=== PATIENT | female | born 1960 | race Caucasian/White ===

== ENCOUNTER → 2020-07-03 | Outpatient (CLI) | payer OTHER ==
--- NOTE | 2020-07-03 14:49 | Diagnostic Imaging Report ---
EXAMINATION: Magnetic resonance imaging of the right knee without intravenous contrast DATE: July 03, 2020. COMPARISON: None. INDICATION: 60-year-old female, right knee pain. Twisting injury 2 weeks ago. TECHNIQUE: Multiplanar, multisequence non contrast enhanced MR imaging was accomplished. FINDINGS: MENISCI: There is an oblique tear involving the anterior horn/body junction and body of the medial meniscus. There is no medial meniscal extrusion. The lateral meniscus is intact. LIGAMENTS AND TENDONS: The anterior and posterior cruciate ligaments are intact. The medial collateral ligament is intact. The iliotibial band, mid third lateral capsular ligament, fibular collateral ligament, biceps femoris tendon and conjoined tendon are intact. The quadriceps tendon and patella ligament are intact. JOINT: The articular cartilage surfaces are intact. There is no knee joint effusion, prominent synovitis, or intra-articular body. BONE: There is unremarkable bone marrow signal. Specifically, negative for fracture, osteomyelitis, osteonecrosis, or marrow replacing process. BURSAE AND SOFT TISSUES: There is a small slitlike Samuel's cyst. There is nonspecific prepatellar subcutaneous edema. There is subtle low level edema in the lateral head of gastrocnemius muscle. IMPRESSION: 1. Oblique tear involving the anterior horn and body of the medial meniscus. 2. Intact lateral meniscus. 3. Intact anterior and posterior cruciate ligaments. Additional ligaments and tendons are intact. 4. No acute fracture or bone contusion. 5. Intact articular cartilage. No knee joint effusion. 6. Small slitlike Samuel's cyst. 7. Edema in the lateral head of gastrocnemius muscle which may reflect a low-grade muscle strain. Dictated by: Dictated on workstation # [id number]
== END ==
LOC: RAD 13:25
PROVIDERS: ATTEND Nurse Practitioner Family
DX: Z04.2 Encounter for examination and observation following work accident (principal); S83.411A Sprain of medial collateral ligament of right knee, initial encounter; I10 Essential (primary) hypertension; S83.241A Other tear of medial meniscus, current injury, right knee, initial encounter; M71.21 Synovial cyst of popliteal space [Baker], right knee
CPT/HCPCS: 73721

== ENCOUNTER 2021-07-27 15:40 | Observation (INO) | payer OTHER ==
[2021-07-27] VITALS (9 sets, daily range): BP systolic 126–164; BP diastolic 85–116
[~2021-07-27] VITALS: Ht 167.7 cm; Wt 80.2 kg
[2021-07-27] MEDS ORDERED: ASPIRIN 81 MG CHEW (CHILDREN'S ASA) PO ONE (16:00)
[2021-07-27] MEDS ORDERED: NITROGLYCERIN 0.4 MG SL TABS BTL 25'S SL PRN ×2 (16:00→21:30)
--- NOTE | 2021-07-27 16:14 | ED Chest Pain ---
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 CHEST PAIN COMES AND GOES, AND RATES IT 6/10 AT WORST, AND RATES PAIN 2-3/10- NOW NO SHORTNESS OF BREATH--STATES SHE ONLY FEELS SHORT OF BREATH WHEN SHE HAS TO WEAR A MASK AT WORK. DOES FEEL SHORT OF BREATH WHEN SHE IS NOT WEARING A MASK + SWEATS WHEN HER HEART IS BEATING FAST AND WITH CHEST PAIN NO DIZZINESS OR SYNCOPE NO CHANGE IN NORMAL FEET/ANKLE AND HAND SWELLING AT THE END OF A WORK DAY SYMPTOMS ARE NO DIFFERENT TODAY IN ANY WAY HAS NOT SOUGHT CARE UNTIL TODAY PT HAS HTN, AND TAKES: -LISINOPRIL 10 MG DAILY -ATENOLOL 100 MG AT BEDTIME -DOXAZOSIN DAILY STATES SHE DOES NOT HAVE A DR--JUST GOES TO A WALK IN CLINIC IN [place] FOR MEDICATION REFILLS HAS NEVER HAD ANY CARDIAC TESTS PT DOES NOT SMOKE, DRINK OR USE DRUGS PT HAS HAD COVID-19 VACCINE X 2, NO BOOSTER PT HAS HAD FLU VACCINE THIS SEASON Allergies and Home Medications Allergies Coded Allergies: Penicillins (Verified Allergy, Severe, ANAPHYLAXIS, 07/27/21) Patient Home Medication List Home Medication List Reviewed: Yes Review of Systems Review of Systems Constitutional: see HPI, diaphoresis; No dizziness, No malaise, No weakness EENTM: No Symptoms Reported Respiratory: See HPI, Shortness of Air Cardiovascular: See HPI, Chest Pain; Denies Edema; Irregular Heart Rate; Denies Lightheadedness; Palpitations; Denies Syncope Gastrointestinal: No Symptoms Reported; Denies Abdominal Pain, Denies Nausea, Denies Vomiting Genitourinary: No Symptoms Reported Musculoskeletal: see HPI Skin: no symptoms reported Psychiatric/Neurological: No Symptoms Reported Endocrine: No Symptoms Reported Hematologic/Lymphatic: No Symptoms Reported Past Dpnilvl-Xptnkr-Oapycm Hx Patient Social History Tobacco Use?: No Substance use?: No Alcohol Use?: No Past Medical History Surgeries: Yes Adenoidectomy, Hysterectomy, Oophorectomy, Orthopedic, Tonsillectomy Respiratory: No Cardiac: Yes Hypertension 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 oz. kg; BMI Method: General Appearance: No Apparent Distress, WD/WN, Other (DOES NOT APPEAR TO BE IN ANY DISCOMFORT OR DISTRESS) Neck: Full Range of Motion, Normal Inspection, Non Tender, Supple; No Carotid Bruit, No JVD Respiratory: Normal Breath Sounds, No Accessory Muscle Use, No Respiratory Distress Cardiovascular: No Edema, No JVD, No Murmur, Normal Peripheral Pulses, Tachycardia Gastrointestinal: Non Tender, Soft Extremity: Normal Capillary Refill, Normal Inspection, Normal Range of Motion, Non Tender, No Calf Tenderness, No Pedal Edema Neurologic/Psychiatric: Alert, Oriented x3, No Motor/Sensory Deficits, Normal 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, 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 Norm as Tested Skin: Normal Color, Warm/Dry Progress/Results/Core Measures Results/Orders Lab Results Laboratory Tests Test 07/27/21 16:13 07/27/21 16:30 Range/Units White Blood Count 6.0 4.3-11.0 10^3/uL Red Blood Count 4.51 3.80-5.11 10^6/uL Hemoglobin 13.7 11.5-16.0 g/dL Hematocrit 40 35-52 % Mean Corpuscular Volume 89 80-99 fL Mean Corpuscular Hemoglobin 30 25-34 pg Mean Corpuscular Hemoglobin Concent 34 32-36 g/dL Red Cell Distribution Width 12.1 10.0-14.5 % Platelet Count 279 130-400 10^3/uL Mean Platelet Volume 9.5 9.0-12.2 fL Immature Granulocyte % (Auto) 0 % Neutrophils (%) (Auto) 46 42-75 % Lymphocytes (%) (Auto) 42 12-44 % Monocytes (%) (Auto) 9 0-12 % Eosinophils (%) (Auto) 2 0-10 % Basophils (%) (Auto) 1 0-10 % Neutrophils # (Auto) 2.8 1.8-7.8 10^3/uL Lymphocytes # (Auto) 2.5 1.0-4.0 10^3/uL Monocytes # (Auto) 0.5 0.0-1.0 10^3/uL Eosinophils # (Auto) 0.1 0.0-0.3 10^3/uL Basophils # (Auto) 0.0 0.0-0.1 10^3/uL Immature Granulocyte # (Auto) 0.0 0.0-0.1 10^3/uL Prothrombin Time 12.8 12.2-14.7 SEC INR Comment 0.9 0.8-1.4 Activated Partial Thromboplast Time 30 24-35 SEC D-Dimer 0.45 0.00-0.49 UG/ML Sodium Level 143 135-145 MMOL/L Potassium Level 4.2 3.6-5.0 MMOL/L Chloride Level 107 98-107 MMOL/L Carbon Dioxide Level 24 21-32 MMOL/L Anion Gap 12 5-14 MMOL/L Blood Urea Nitrogen 12 7-18 MG/DL Creatinine 0.75 0.60-1.30 MG/DL Estimat Glomerular Filtration Rate 91 BUN/Creatinine Ratio 16 Glucose Level 97 70-105 MG/DL Calcium Level 9.5 8.5-10.1 MG/DL Corrected Calcium 9.4 8.5-10.1 MG/DL Magnesium Level 2.3 1.6-2.4 MG/DL Total Bilirubin 0.4 0.1-1.0 MG/DL Aspartate Amino Transf (AST/SGOT) 19 5-34 U/L Alanine Aminotransferase (ALT/SGPT) 18 0-55 U/L Alkaline Phosphatase 93 40-136 U/L Total Creatine Kinase 53 29-168 U/L Creatine Kinase MB 1.9 <6.6 NG/ML Myoglobin 37.4 10.0-92.0 NG/ML Troponin I < 0.028 <0.028 NG/ML B-Type Natriuretic Peptide 15.9 <100.0 PG/ML Total Protein 7.3 6.4-8.2 GM/DL Albumin 4.1 3.2-4.5 GM/DL TSH [place] Testing 0.63 0.35-4.94 UIU/ML Urine Color YELLOW Urine Clarity CLEAR Urine pH 6.0 5-9 Urine Specific [place] >=1.030 1.016-1.022 Urine Protein NEGATIVE NEGATIVE Urine Glucose (UA) NEGATIVE NEGATIVE Urine Ketones NEGATIVE NEGATIVE Urine Nitrite NEGATIVE NEGATIVE Urine Bilirubin NEGATIVE NEGATIVE Urine Urobilinogen 0.2 < = 1.0 MG/DL Urine Leukocyte Esterase NEGATIVE NEGATIVE Urine RBC (Auto) NEGATIVE NEGATIVE Urine RBC NONE /HPF Urine WBC NONE /HPF Urine Squamous Epithelial Cells 0-2 /HPF Urine Crystals NONE /LPF Urine Bacteria NEGATIVE /HPF Urine Casts NONE /LPF Urine Mucus NEGATIVE /LPF Urine Culture Indicated NO My Orders Orders - PABLITO PUENTES DO Ed Iv/Invasive Line Start (07/27/21 15:53) Ekg Tracing (07/27/21 15:53) O2 (07/27/21 15:53) Monitor-Rhythm Ecg Trace Only (07/27/21 15:53) Bnp [place] (07/27/21 15:53) Cbc With Automated Diff (07/27/21 15:53) Comprehensive Metabolic Panel (07/27/21 15:53) Magnesium (07/27/21 15:53) Protime With Inr (07/27/21 15:53) Partial Thromboplastin Time (07/27/21 15:53) Thyroid Analyzer (07/27/21 15:53) Ua Culture If Indicated (07/27/21 15:53) Troponin I [place] (07/27/21 15:53) Chest 1 View, Ap/Pa Only (07/27/21 15:53) Myoglobin Serum (07/27/21 16:00) Creatine Kinase (07/27/21 16:00) Creatine Kinase Mb (07/27/21 16:00) Fibrin Degradation Products (07/27/21 16:00) Nitroglycerin 0.4 Mg Btl 25's (Nitrostat (07/27/21 16:00) Aspirin Chewable Tablet (Baby Aspirin Ch (07/27/21 16:00) Vital Signs/I&O 07/27/21 15:50 Temp 36.5 Pulse 115 Resp 17 B/P (MAP) 140/102 (115) O2 Delivery Room Air Progress Progress Note : Progress Note GIVEN ASPIRIN NTG HELD, PT NOW STATES HER PAIN IS LESS THAN A 1, BUT NOT COMPLETELY GONE. NO DETERIORATION IN PT'S CONDITION HR REMAINS 110'S-120 BP STABLE Initial ECG Impression Date: July 27, 2021 Initial ECG Impression Time: 16:01 Initial ECG Rate: 110 Initial ECG Rhythm: S.Tach Initial ECG Comparisson: No Previous ECG Available Diagnostic Imaging Comments CXR--PER RADIOLOGIST REPORT AT 1705 FINDINGS: Heart and mediastinal silhouette are normal in appearance. The lungs are clear. There is no pneumothorax or pleural fluid. IMPRESSION: Negative chest. Reviewed: Reviewed by Me Departure Communication (Admissions) 172--SPOKE WITH DR. PIASNO, SUPERVISOR SHEARING, RECOMMENDATIONS NOTED. HE WILL SEE PT IN CONSULT, ADVISES ADMIT TO HOSPITALIST. 172--SPOKE WITH DR. TIERNEY, HOSPITALIST, ACCEPTS PT FOR ADMIT. Impression Primary Impression: Sinus tachycardia Additional Impressions: Primary hypertension Chest pain Disposition: ADMITTED INPATIENT Condition: Stable Admissions Decision to Admit Reason: Admit from ER (General) Decision to Admit/Date: July 27, 2021 Time/Decision to Admit Time: 17:25 Departure-Patient Inst. Referrals: NO,LOCAL PHYSICIAN (PCP/Family) Primary Care Physician PABLITO PUENTES DO July 27, 2021 16:13
[2021-07-27 16:22] LABS: BASOPHILS % (AUTO) 1 % (0-10); EOSINOPHILS # (AUTO) 0.1 10^3/uL (0.0-0.3); EOSINOPHILS % (AUTO) 2 % (0-10); HEMATOCRIT 40 % (35-52); HEMOGLOBIN 13.7 g/dL (11.5-16.0); LYMPHOCYTES # (AUTO) 2.5 10^3/uL (1.0-4.0); LYMPHOCYTES % (AUTO) 42 % (12-44); MEAN CORPUSCULAR HEMOGLOBIN 30 pg (25-34); MEAN CORPUSCULAR HGB CONC 34 g/dL (32-36); MEAN CORPUSCULAR VOLUME 89 fL (80-99); MEAN PLATELET VOLUME 9.5 fL (9.0-12.2); MONOCYTES # (AUTO) 0.5 10^3/uL (0.0-1.0); MONOCYTES % (AUTO) 9 % (0-12); NEUTROPHILS # (AUTO) 2.8 10^3/uL (1.8-7.8); NEUTROPHILS % (AUTO) 46 % (42-75); PLATELET COUNT 279 10^3/uL (130-400)
--- NOTE | 2021-07-27 16:23 | Diagnostic Imaging Report ---
INDICATION: Tachycardia. Frontal chest obtained at 4:20 p.m. FINDINGS: Heart and mediastinal silhouette are normal in appearance. The lungs are clear. There is no pneumothorax or pleural fluid. IMPRESSION: Negative chest. Dictated by: Dictated on workstation # [id number]
[2021-07-27 16:36] LABS: BILIRUBIN,URINE NEGATIVE (NEGATIVE); CLARITY,URINE CLEAR; COLOR,URINE YELLOW; GLUCOSE, URINE (UA) NEGATIVE (NEGATIVE); KETONES,URINE NEGATIVE (NEGATIVE); LEUKOCYTE ESTERASE ,URINE NEGATIVE (NEGATIVE); NITRITE,URINE NEGATIVE (NEGATIVE); PROTEIN,URINE NEGATIVE (NEGATIVE)
[2021-07-27 16:39] LABS: ALBUMIN 4.1 GM/DL (3.2-4.5)
[2021-07-27 16:40] LABS: CHLORIDE 107 MMOL/L (98-107); POTASSIUM 4.2 MMOL/L (3.6-5.0); SODIUM 143 MMOL/L (135-145)
[2021-07-27 16:41] LABS: CALCIUM 9.5 MG/DL (8.5-10.1)
[2021-07-27 16:42] LABS: GLUCOSE 97 MG/DL (70-105); TOTAL PROTEIN 7.3 GM/DL (6.4-8.2)
[2021-07-27 16:43] LABS: CARBON DIOXIDE 24 MMOL/L (21-32)
[2021-07-27 16:44] LABS: BILIRUBIN,TOTAL 0.4 MG/DL (0.1-1.0); FIBRIN DEGRADATION PRODUCTS 0.45 UG/ML (0.00-0.49); INR 0.9 (0.8-1.4); PROTHROMBIN TIME PATIENT 12.8 SEC (12.2-14.7)
[2021-07-27 16:44] LABS: BACTERIA,URINE NEGATIVE /HPF; SQUAMOUS EPITHELIAL CELL,UR 0-2 /HPF
[2021-07-27 16:45] LABS: ALKALINE PHOSPHATASE 93 U/L (40-136)
[2021-07-27 16:46] LABS: CREATININE SERUM 0.75 MG/DL (0.60-1.30); GFR ESTIMATED 91
[2021-07-27 16:47] LABS: BUN/CREATININE RATIO 16
[2021-07-27 16:48] LABS: MAGNESIUM 2.3 MG/DL (1.6-2.4)
[2021-07-27 16:49] LABS: ALANINE AMINOTRANSFERASE 18 U/L (0-55)
[2021-07-27 17:08] LABS: CREATINE KINASE MB 1.9 NG/ML (<6.6)
[2021-07-27 17:09] LABS: TSH (THYROID ANALYZER) 0.63 UIU/ML (0.35-4.94)
[2021-07-27] MEDS ORDERED: LIDOCAINE 2% VISCOUS 15 ML UDC PO ONE (17:45)
[2021-07-27] MEDS ORDERED: ANTACID SUSP 30 ML UDC (MYLANTA) PO ONE (17:45)
[2021-07-27] MEDS ORDERED: ATENOLOL 25 MG (TENORMIN) TAB PO ONE (17:45)
[2021-07-27] MEDS ORDERED: PANTOPRAZOLE 40 MG (PROTONIX) TAB PO ONE (17:45)
[2021-07-27] MEDS ORDERED: lisINopril 20 MG (PRINIVIL) TABLET PO NR (19:00)
--- NOTE | 2021-07-27 19:06 | Consultation-Cardiology ---
HPI-Cardiology Cardiology Consultation: Date of Consultation 07/27/21 Date of Admission 07/27/21 Attending Physician Trudy Oakes MD Admitting Physician No,Local Physician Consulting Physician LINNEA PISANO JR, MD HPI: Time Seen by a Provider: 19:00 Chief Complaint: Reason for consultation: Chest pain I had the pleasure of seeing Nancy at [facility] in [place], [place] today. She has a longstanding history of hypertension. She normally follows with a physician at a walk-in clinic to get her prescriptions refilled. She tells me that when she was first diagnosed with hypertension many years ago, she had extremely high blood pressures and after a few weeks of titrating up 3 different medications, her blood pressures finally came under control. Over the years, she has had intermittent episodes of fluctuating blood pressures. She also has had fluctuating heart rates. Sometimes when her heart rate is elevated she will have palpitations and mild chest tightness. These episodes are usually short-lived. However, over the past 3 weeks she has been having more frequent e pisodes of high heart rates which will cause her to have palpitations and a tightness in the center of her chest that radiates to her back. The last time she saw her provider at the walk-in clinic was approximately 1 month ago. 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 One of the nurses noticed to her checking her blood pressure today while at work and encouraged her to go to the emergency room for further evaluation. She denies chest discomfort when she is not having palpitations. She denies paroxysmal nocturnal dyspnea, orthopnea, lightheadedness, or syncope. Sometimes she will get mild ankle edema if she stands for a long time at work. She is on 3 different antihypertensive medications and takes these all at bedtime. Because of the chest pain, palpitations and hypertension, a cardiology consultation was requested. Certain portions of this document may have been dictated utilizing voice recognition technology. Inherent to this technology, typographical and grammatical errors may exist. As much as I am diligent to identify and correct these mistakes, some errors may remain in the document. Review of Systems-Cardiology Review of Systems Other comments Review of 10 organ systems is as per the history of present illness, otherwise negative. FLL-Uxwuxu-Tcfymr Hx Patient Social History Smoking Status: Never a Smoker Have you traveled recently?: No Alcohol Use?: No Pt feels they are or have been: No Past Medical History PMH As described under Assessment. Family Medical History Family Medical History: The patient does not know of any family history of premature coronary artery disease in first-degree relatives. Allergies and Home Medications Allergies Coded Allergies: Penicillins (Verified Allergy, Severe, ANAPHYLAXIS, 07/27/21) Patient Home Medication List Home Medication List Reviewed: Yes Exam Vital Signs Vital Signs Date Time Temp Pulse Resp B/P (MAP) Pulse Ox O2 Delivery O2 Flow Rate FiO2 07/27/21 15:50 36.5 115 17 140/102 (115) Room Air Physical Exam General: Alert. No acute distress. Well nourished and appears stated age. Eye: Extraocular movements are intact. Conjunctivae are clear. There are no xanthelasma. HENT: Normocephalic. Atraumatic. Carotid pulsations 2/2 without bruits. Neck: Jugular venous pressure does not appear elevated. No thyromegaly appreciated. Respiratory: Lungs are clear to auscultation. Respirations are non-labored. Breath sounds are equal. Symmetrical chest wall expansion. Cardiovascular: Normal rate. Regular rhythm. No murmur. No gallop. Point of maximal impulse is not appear displaced. Good pulses equal in all extremities. No edema. Gastrointestinal: Soft. Normal bowel sounds. Skin: Skin turgor is normal. There is no pallor. Musculoskeletal: No kyphosis or scoliosis appreciated. Neurologic: Alert and oriented to person, place, time. Cranial nerves 3-12 appear grossly intact. The patient has good motor tone strength in the upper and lower extremities bilaterally. Psychiatric: Cooperative. Appropriate mood & affect. Labs Laboratory Tests Test 07/27/21 16:13 07/27/21 16:30 Range/Units White Blood Count 6.0 4.3-11.0 10^3/uL Red Blood Count 4.51 3.80-5.11 10^6/uL Hemoglobin 13.7 11.5-16.0 g/dL Hematocrit 40 35-52 % Mean Corpuscular Volume 89 80-99 fL Mean Corpuscular Hemoglobin 30 25-34 pg Mean Corpuscular Hemoglobin Concent 34 32-36 g/dL Red Cell Distribution Width 12.1 10.0-14.5 % Platelet Count 279 130-400 10^3/uL Mean Platelet Volume 9.5 9.0-12.2 fL Immature Granulocyte % (Auto) 0 % Neutrophils (%) (Auto) 46 42-75 % Lymphocytes (%) (Auto) 42 12-44 % Monocytes (%) (Auto) 9 0-12 % Eosinophils (%) (Auto) 2 0-10 % Basophils (%) (Auto) 1 0-10 % Neutrophils # (Auto) 2.8 1.8-7.8 10^3/uL Lymphocytes # (Auto) 2.5 1.0-4.0 10^3/uL Monocytes # (Auto) 0.5 0.0-1.0 10^3/uL Eosinophils # (Auto) 0.1 0.0-0.3 10^3/uL Basophils # (Auto) 0.0 0.0-0.1 10^3/uL Immature Granulocyte # (Auto) 0.0 0.0-0.1 10^3/uL Prothrombin Time 12.8 12.2-14.7 SEC INR Comment 0.9 0.8-1.4 Activated Partial Thromboplast Time 30 24-35 SEC D-Dimer 0.45 0.00-0.49 UG/ML Sodium Level 143 135-145 MMOL/L Potassium Level 4.2 3.6-5.0 MMOL/L Chloride Level 107 98-107 MMOL/L Carbon Dioxide Level 24 21-32 MMOL/L Anion Gap 12 5-14 MMOL/L Blood Urea Nitrogen 12 7-18 MG/DL Creatinine 0.75 0.60-1.30 MG/DL Estimat Glomerular Filtration Rate 91 BUN/Creatinine Ratio 16 Glucose Level 97 70-105 MG/DL Calcium Level 9.5 8.5-10.1 MG/DL Corrected Calcium 9.4 8.5-10.1 MG/DL Magnesium Level 2.3 1.6-2.4 MG/DL Total Bilirubin 0.4 0.1-1.0 MG/DL Aspartate Amino Transf (AST/SGOT) 19 5-34 U/L Alanine Aminotransferase (ALT/SGPT) 18 0-55 U/L Alkaline Phosphatase 93 40-136 U/L Total Creatine Kinase 53 29-168 U/L Creatine Kinase MB 1.9 <6.6 NG/ML Myoglobin 37.4 10.0-92.0 NG/ML Troponin I < 0.028 <0.028 NG/ML B-Type Natriuretic Peptide 15.9 <100.0 PG/ML Total Protein 7.3 6.4-8.2 GM/DL Albumin 4.1 3.2-4.5 GM/DL TSH [place] Testing 0.63 0.35-4.94 UIU/ML Urine Color YELLOW Urine Clarity CLEAR Urine pH 6.0 5-9 Urine Specific [place] >=1.030 1.016-1.022 Urine Protein NEGATIVE NEGATIVE Urine Glucose (UA) NEGATIVE NEGATIVE Urine Ketones NEGATIVE NEGATIVE Urine Nitrite NEGATIVE NEGATIVE Urine Bilirubin NEGATIVE NEGATIVE Urine Urobilinogen 0.2 < = 1.0 MG/DL Urine Leukocyte Esterase NEGATIVE NEGATIVE Urine RBC (Auto) NEGATIVE NEGATIVE Urine RBC NONE /HPF Urine WBC NONE /HPF Urine Squamous Epithelial Cells 0-2 /HPF Urine Crystals NONE /LPF Urine Bacteria NEGATIVE /HPF Urine Casts NONE /LPF Urine Mucus NEGATIVE /LPF Urine Culture Indicated NO ECG Impression ECG Comment Sinus tachycardia, otherwise unremarkable tracing. Diagnosis/Problems Diagnosis/Problems (1) Chest pain Assessment & Plan: Exact etiology unclear. There are no ischemic changes on her electrocardiogram and her initial troponin level is undetectable. She was given a gastrointestinal cocktail in the emergency room which she is not sure if this helped or not because by the time she took this medication, her chest discomfort had already subsided. This sounds like cardiac chest pain based on the description of her discomfort. However, this is nonexertional and only occurs when she has high heart rates. In that regard, this sounds more like noncardiac chest pain. Nonetheless, I agree with admission to observation for serial troponin levels. I will obtain a electrocardiogram in the morning as well as an echocardiogram. If his her symptoms subside overnight, she may be able to be discharged tomorrow. I would then plan on an outpatient stress test which I can arrange through my office. (2) Primary hypertension Assessment & Plan: I will double her dose of doxazosin and lisinopril. I will resume her atenolol. I will give her a dose this evening but after today, I told her she should take her antihypertensive medication in the mornings. Typically, antihypertensive medication is much more effective if taken in the morning as opposed to at bedtime. (3) Sinus tachycardia Assessment & Plan: She also had sinus tachycardia in the emergency room. Her TSH level level was normal. I will obtain an echocardiogram as above. We may need to consider an outpatient monitor. (4) Overweight Assessment & Plan: She needs to work on weight loss. This would probably help both the hypertension and tachycardia. LINNEA PISANO JR, MD July 27, 2021 19:06
[2021-07-27] MEDS: doxAzosin 2 MG (CARDURA) TAB PO SCH (20:17)
[2021-07-27] MEDS ORDERED: morphine INJ 4 MG/ML 1 ML (VIAL/SYRINGE) IV PRN (21:30)
[2021-07-27] MEDS ORDERED: ONDANSETRON 4 MG/2 ML (SDV) Z0FRAN IVP PRN (21:30)
[2021-07-27] MEDS: CATHETER FLUSH 10 ML SYR IVP SCH (21:43)
[2021-07-28] VITALS: BP 126/72
[2021-07-28 03:15] LABS: BASOPHILS % (AUTO) 1 % (0-10); EOSINOPHILS # (AUTO) 0.1 10^3/uL (0.0-0.3); EOSINOPHILS % (AUTO) 2 % (0-10); HEMATOCRIT 40 % (35-52); HEMOGLOBIN 13.4 g/dL (11.5-16.0); LYMPHOCYTES # (AUTO) 2.7 10^3/uL (1.0-4.0); LYMPHOCYTES % (AUTO) 45 % (12-44); MEAN CORPUSCULAR HEMOGLOBIN 30 pg (25-34); MEAN CORPUSCULAR HGB CONC 34 g/dL (32-36); MEAN CORPUSCULAR VOLUME 90 fL (80-99); MEAN PLATELET VOLUME 9.3 fL (9.0-12.2); MONOCYTES # (AUTO) 0.6 10^3/uL (0.0-1.0); MONOCYTES % (AUTO) 10 % (0-12); NEUTROPHILS # (AUTO) 2.6 10^3/uL (1.8-7.8); NEUTROPHILS % (AUTO) 43 % (42-75); PLATELET COUNT 263 10^3/uL (130-400)
[2021-07-28 03:30] LABS: POTASSIUM 3.8 MMOL/L (3.6-5.0)
[2021-07-28 03:32] LABS: CALCIUM 9.3 MG/DL (8.5-10.1)
[2021-07-28 03:36] LABS: CREATININE SERUM 0.8 MG/DL (0.60-1.30)
[2021-07-28 04:50] VITALS: BP 116/77
[2021-07-28] MEDS: CATHETER FLUSH 10 ML SYR IVP SCH (06:09)
[2021-07-28 08:00] VITALS: BP 113/83
--- NOTE | 2021-07-28 08:19 | Short Stay Summary-Hospitalist ---
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 She states for the past few weeks she has had some chest pain and a heart rate in the 120s to 130s. Her pain is worse when her heart rate is faster. She does have a history of hypertension but does not follow regularly with a primary care doctor and feels these through urgent cares. He denies any history of arrhythmias. She does have a history of very elevated blood pressures though and these are intermittent. When it is elevated it tends to be refractory to treatment but then will resolve on its own. She states she has never had a work-up for these as an outpatient. 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 Date Seen 07/28/21 Time Seen by a Provider: 08:14 Attending Physician Camelia Oakes MD PCP No,Local Physician Referring Physician Date of Admission July 27, 2021 at 17:30 Home Medications & Allergies Home Medications Reviewed patient Home Medication Reconciliation performed by pharmacy medication reconciliations electronic organ technician and/or nursing. Patients Allergies have been reviewed. Allergies Allergies Coded Allergies Penicillins (Verified Allergy, Severe, ANAPHYLAXIS, 07/27/21) Past Azwhefa-Fngpnw-Exqsyi Hx Patient Social History Tobacco Use?: No Smoking Status: Never a Smoker Smokeless Tobacco Frequency: Never a User Use of E-Cig and/or Vaping dev: No Use of E-Cig and/or Vaping Judson: Never a User Substance use?: No Alcohol Use?: No Pt feels they are or have been: No Current Status status: No Advance Directives: No Communicates: Verbally Primary Language: French Preferred Spoken Language: French Is interpretation needed?: No Implanted or Applied Medical D: None Past Medical History Surgeries: Adenoidectomy, Hysterectomy, Oophorectomy, Orthopedic, Tonsillectomy Hypertension 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 History: Hysterectomy, Menopausal Blood Disorders: No Family Medical History PAST SURGICAL HISTORY: -TONSILLECTOMY/ADENOIDECTOMY -HYSTERCTOMY/OVARIES INTACT -OPEN LEFT KNEE SURGERY FOR TORN MENISCUS Review of Systems Constitutional: No chills, No fever EENTM: No blurred vision, No double vision, No nose congestion, No throat pain Respiratory: No cough, No dyspnea on exertion, No short of breath Cardiovascular: chest pain; No edema; palpitations Gastrointestinal: No abdominal pain, No constipation, No diarrhea, No nausea, No vomiting Genitourinary: No dysuria, No frequency Musculoskeletal: No joint pain, No muscle pain Skin: No lesions, No rash Psychiatric/Neurological: Denies Headache, Denies Numbness, Denies Tingling Physical Exam Physical Exam Vital Signs Vital Signs - First Documented 07/27/21 07/27/21 15:50 19:00 Temp 36.5 Pulse 115 Resp 17 B/P (MAP) 140/102 (115) Pulse Ox 96 O2 Delivery Room Air Capillary Refill : Less Than 3 Seconds Height, Weight, BMI Height: '" Weight: lbs. oz. kg; 28.51 BMI Method: General Appearance: No Apparent Distress, WD/WN, Other (DOES NOT APPEAR TO BE IN ANY DISCOMFORT OR DISTRESS) HEENT: PERRL/EOMI, Moist Mucous Membranes; No Scleral Icterus (L), No Scleral Icterus (R) Neck: Normal Inspection, Supple; No JVD Respiratory: Lungs Clear, No Accessory Muscle Use, No Respiratory Distress Cardiovascular: Regular Rate, Rhythm, No Edema, No Murmur Gastrointestinal: Normal Bowel Sounds, Non Tender, Soft; No Distended, No Guarding, No Tenderness Extremity: Normal Inspection, Non Tender, No Calf Tenderness, No Pedal Edema Neurologic/Psychiatric: Alert, Oriented x3, Normal Mood/Affect; No Aphasia, No Facial Droop Skin: Normal Color, Warm/Dry Results Results/Procedures Labs Laboratory Tests 07/27/21 16:13 07/28/21 03:06 Patient resulted labs reviewed. Imaging: Reviewed Imaging Report Imaging [facility], [place] NAME: MALACHI BAEZA [facility] REC#: [id number] PT STATUS: REG ER : 1960 PHYSICIAN: PABLITO PUENTES DO ADMIT DATE: 07/27/21/ER Signed Date of Exam:07/27/21 CHEST 1 VIEW, AP/PA ONLY INDICATION: Tachycardia. Frontal chest obtained at 4:20 p.m. FINDINGS: Heart and mediastinal silhouette are normal in appearance. The lungs are clear. There is no pneumothorax or pleural fluid. IMPRESSION: Negative chest. Dictated by: Dictated on workstation # [id number] Dict: 07/27/21 1620 Trans: 07/27/21 1633 [id number] Interpreted by: LOGAN LOVE MD Electronically signed by: LOGAN LOVE MD 07/27/21 1639 Short Stay Diagnosis Discharge Diagnosis-Short Stay Admission Diagnosis Chest pain Final Discharge Diagnosis Chest pain Conclusion Plan Chest pain Sinus tachycardia Cardiology consulted, appreciate recs HR improved BP improved- will actually hold lisinopril due to BP control and continue atenolol to help with HR Echo ordered DC home today if continues to do well Discussed with Dr Melgar- plans on outpatient follow up Diagnosis/Problems Diagnosis/Problems (1) Chest pain Qualifiers: Qualified Codes: R07.89 - Other chest pain (2) Sinus tachycardia Status: Acute (3) Primary hypertension Status: Chronic Clinical Quality Measures AMI/AHF: ASA po Prior to arrival: CAMELIA Walker MD July 28, 2021 08:19
[2021-07-28] MEDS: doxAzosin 2 MG (CARDURA) TAB PO SCH (08:50)
[2021-07-28] MEDS ORDERED: ATENOLOL 25 MG (TENORMIN) TAB PO SCH (09:00)
[2021-07-28] MEDS ORDERED: lisINopril 20 MG (PRINIVIL) TABLET PO SCH (09:00)
[2021-07-28] MEDS ORDERED: PANTOPRAZOLE 40 MG (PROTONIX) TAB PO SCH (09:00)
[2021-07-28] MEDS ORDERED: ASPIRIN E.C. 81 MG (ECOTRIN) TAB PO SCH (09:00)
[2021-07-28] MEDS ORDERED: DOXA2TAB2 PO (11:27)
[2021-07-28] MEDS ORDERED: PANT40TA52 PO (11:27)
[2021-07-28] MEDS ORDERED: LISI20TA26 PO (11:27)
[2021-07-28] MEDS ORDERED: ATEN25TA PO (11:27)
[2021-07-28] MEDS ORDERED: ASPI-1238 PO (11:27)
--- NOTE | 2021-07-28 11:34 | Cardiology Progress Note ---
Progress Note-Cardiology Events since last exam Date Seen by Provider: July 28, 2021 Time Seen by Provider: 11:28 Events since last exam I am following her due to chest pain and tachycardia. Her chest discomfort r esolved overnight. She denies any further tachycardia. She denies dyspnea, palpitations, syncope, or ankle edema. She has been ambulating in the halls without difficulty. She would like to go home. Certain portions of this document may have been dictated utilizing voice recognition technology. Inherent to this technology, typographical and grammatical errors may exist. As much as I am diligent to identify and correct these mistakes, some errors may remain in the document. Vitals Last set of Vitals Signs Vital Signs 07/28/21 07:54 Temp 36.6 Labs Labs Laboratory Tests 07/27/21 16:13 07/28/21 03:06 Exam Vital Signs Vital Signs Date Time Temp Pulse Resp B/P (MAP) Pulse Ox O2 Delivery O2 Flow Rate FiO2 07/28/21 08:00 73 22 113/83 (93) 97 Room Air 07/28/21 07:54 36.6 Physical Exam General: Alert. No acute distress. Eye: No xanthelasma. HENT: Normocephalic. Neck: Jugular venous pressure does not appear elevated. Respiratory: Lungs are clear to auscultation. Respirations are non-labored. Breath sounds are equal. Symmetrical chest wall expansion. Cardiovascular: Normal rate. Regular rhythm. No murmur. No gallop. No edema. Gastrointestinal: Soft. Normal bowel sounds. Skin: Warm. Dry. Neurologic: Alert and oriented to person, place, time. Cranial nerves 3-11 grossly intact. Psychiatric: Cooperative. Appropriate mood & affect. Labs Laboratory Tests Test 07/27/21 16:13 07/27/21 16:30 07/27/21 19:36 07/27/21 22:32 Range/Units White Blood Count 6.0 4.3-11.0 10^3/uL Red Blood Count 4.51 3.80-5.11 10^6/uL Hemoglobin 13.7 11.5-16.0 g/dL Hematocrit 40 35-52 % Mean Corpuscular Volume 89 80-99 fL Mean Corpuscular Hemoglobin 30 25-34 pg Mean Corpuscular Hemoglobin Concent 34 32-36 g/dL Red Cell Distribution Width 12.1 10.0-14.5 % Platelet Count 279 130-400 10^3/uL Mean Platelet Volume 9.5 9.0-12.2 fL Immature Granulocyte % (Auto) 0 % Neutrophils (%) (Auto) 46 42-75 % Lymphocytes (%) (Auto) 42 12-44 % Monocytes (%) (Auto) 9 0-12 % Eosinophils (%) (Auto) 2 0-10 % Basophils (%) (Auto) 1 0-10 % Neutrophils # (Auto) 2.8 1.8-7.8 10^3/uL Lymphocytes # (Auto) 2.5 1.0-4.0 10^3/uL Monocytes # (Auto) 0.5 0.0-1.0 10^3/uL Eosinophils # (Auto) 0.1 0.0-0.3 10^3/uL Basophils # (Auto) 0.0 0.0-0.1 10^3/uL Immature Granulocyte # (Auto) 0.0 0.0-0.1 10^3/uL Prothrombin Time 12.8 12.2-14.7 SEC INR Comment 0.9 0.8-1.4 Activated Partial Thromboplast Time 30 24-35 SEC D-Dimer 0.45 0.00-0.49 UG/ML Sodium Level 143 135-145 MMOL/L Potassium Level 4.2 3.6-5.0 MMOL/L Chloride Level 107 98-107 MMOL/L Carbon Dioxide Level 24 21-32 MMOL/L Anion Gap 12 5-14 MMOL/L Blood Urea Nitrogen 12 7-18 MG/DL Creatinine 0.75 0.60-1.30 MG/DL Estimat Glomerular Filtration Rate 91 BUN/Creatinine Ratio 16 Glucose Level 97 70-105 MG/DL Calcium Level 9.5 8.5-10.1 MG/DL Corrected Calcium 9.4 8.5-10.1 MG/DL Magnesium Level 2.3 1.6-2.4 MG/DL Total Bilirubin 0.4 0.1-1.0 MG/DL Aspartate Amino Transf (AST/SGOT) 19 5-34 U/L Alanine Aminotransferase (ALT/SGPT) 18 0-55 U/L Alkaline Phosphatase 93 40-136 U/L Total Creatine Kinase 53 29-168 U/L Creatine Kinase MB 1.9 <6.6 NG/ML Myoglobin 37.4 10.0-92.0 NG/ML Troponin I < 0.028 < 0.028 < 0.028 <0.028 NG/ML B-Type Natriuretic Peptide 15.9 <100.0 PG/ML Total Protein 7.3 6.4-8.2 GM/DL Albumin 4.1 3.2-4.5 GM/DL TSH [facility] Testing 0.63 0.35-4.94 UIU/ML Urine Color YELLOW Urine Clarity CLEAR Urine pH 6.0 5-9 Urine Specific Purdy >=1.030 1.016-1.022 Urine Protein NEGATIVE NEGATIVE Urine Glucose (UA) NEGATIVE NEGATIVE Urine Ketones NEGATIVE NEGATIVE Urine Nitrite NEGATIVE NEGATIVE Urine Bilirubin NEGATIVE NEGATIVE Urine Urobilinogen 0.2 < = 1.0 MG/DL Urine Leukocyte Esterase NEGATIVE NEGATIVE Urine RBC (Auto) NEGATIVE NEGATIVE Urine RBC NONE /HPF Urine WBC NONE /HPF Urine Squamous Epithelial Cells 0-2 /HPF Urine Crystals NONE /LPF Urine Bacteria NEGATIVE /HPF Urine Casts NONE /LPF Urine Mucus NEGATIVE /LPF Urine Culture Indicated NO Test 07/28/21 03:06 Range/Units White Blood Count 6.0 4.3-11.0 10^3/uL Red Blood Count 4.46 3.80-5.11 10^6/uL Hemoglobin 13.4 11.5-16.0 g/dL Hematocrit 40 35-52 % Mean Corpuscular Volume 90 80-99 fL Mean Corpuscular Hemoglobin 30 25-34 pg Mean Corpuscular Hemoglobin Concent 34 32-36 g/dL Red Cell Distribution Width 12.1 10.0-14.5 % Platelet Count 263 130-400 10^3/uL Mean Platelet Volume 9.3 9.0-12.2 fL Immature Granulocyte % (Auto) 0 % Neutrophils (%) (Auto) 43 42-75 % Lymphocytes (%) (Auto) 45 H 12-44 % Monocytes (%) (Auto) 10 0-12 % Eosinophils (%) (Auto) 2 0-10 % Basophils (%) (Auto) 1 0-10 % Neutrophils # (Auto) 2.6 1.8-7.8 10^3/uL Lymphocytes # (Auto) 2.7 1.0-4.0 10^3/uL Monocytes # (Auto) 0.6 0.0-1.0 10^3/uL Eosinophils # (Auto) 0.1 0.0-0.3 10^3/uL Basophils # (Auto) 0.0 0.0-0.1 10^3/uL Immature Granulocyte # (Auto) 0.0 0.0-0.1 10^3/uL Sodium Level 143 135-145 MMOL/L Potassium Level 3.8 3.6-5.0 MMOL/L Chloride Level 110 H 98-107 MMOL/L Carbon Dioxide Level 21 21-32 MMOL/L Anion Gap 12 5-14 MMOL/L Blood Urea Nitrogen 13 7-18 MG/DL Creatinine 0.80 0.60-1.30 MG/DL Estimat Glomerular Filtration Rate 84 BUN/Creatinine Ratio 16 Glucose Level 110 H 70-105 MG/DL Calcium Level 9.3 8.5-10.1 MG/DL Triglycerides Level 121 <150 MG/DL Cholesterol Level 223 H < 200 MG/DL LDL Cholesterol Direct 169 H 1-129 MG/DL VLDL Cholesterol 24 5-40 MG/DL HDL Cholesterol 42 40-60 MG/DL Radiology ECHOCARDIOGRAM (07/28/2021): 1. Left ventricle: The cavity size is normal. There is mild concentric hypertrophy. Systolic function is normal. The estimated ejection fraction is 60- 65%. There were no regional wall motion abnormalities identified. Doppler parameters are consistent with abnormal left ventricular relaxation (grade 1 diastolic dysfunction). 2. Aortic valve: There is mild aortic valve sclerosis. 3. Pulmonary arteries: The pulmonary artery pressure cannot be estimated on this study due to inadequate tricuspid regurgitant envelope. Diagnosis/Problems Diagnosis/Problems (1) Chest pain Assessment & Plan: Exact etiology unclear. There are no ischemic changes on her electrocardiogram and she had 2 troponin levels which were undetectable. She was given a gastrointestinal cocktail in the emergency room which she is not sure if this helped or not because by the time she took this medication, her chest discomfort had already subsided. This sounds like cardiac chest pain based on the description of her discomfort. However, this is nonexertional and only occurs when she has high heart rates. In that regard, this sounds more like noncardiac chest pain. Her echocardiogram did not show any structural heart disease to explain chest pain. I started her on a proton pump inhibitor. Her chest discomfort resolved overnight. From a cardiac standpoint, she can be discharged to home. I have asked her to call my office on Friday and I will arrange for an outpatient stress test. (2) Primary hypertension Status: Chronic Assessment & Plan: I doubled her dose of doxazosin and lisinopril and resumed her atenolol. She is now normotensive. I recommend she be discharged with the current combination of medications. I have asked her to keep a close eye on her blood pressure and if we inadvertently because hypotension with systolic blood pressures below 100 mmHg, I asked her to go back to her previous dose of doxazosin at 1 mg daily. She had also been taking all 3 of her antihypertensive medications at bedtime. I have asked her to start taking these in the morning. (3) Mixed hyperlipidemia Assessment & Plan: Her LDL level is fairly elevated. I will start her on a low-dose of statin medication. (4) Sinus tachycardia Status: Acute Assessment & Plan: She also had sinus tachycardia in the emergency room. Her TSH level level was normal. I will obtain an echocardiogram as above. We may need to consider an outpatient monitor. (5) Overweight Assessment & Plan: She needs to work on weight loss. This would probably help both the hypertension and tachycardia. Problem Qualifiers (1) Chest pain: Chest pain type: other chest pain Qualified Codes: R07.89 - Other chest pain LINNEA PISANO JR, MD July 28, 2021 11:34
[2021-07-28] MEDS ORDERED: ROSU10TA28 PO (11:38)
--- NOTE | 2021-07-28 11:47 | Discharge Inst-Simple/Standard ---
Discharge Inst-Standard Patient Instructions/Follow Up Plan of Care/Instructions/FU: Please continue take your medications as written. Please follow-up with your primary care provider to follow-up this hospital stay. Please follow-up with Dr. Melgar as recommended Activity as Tolerated: Yes Discharge Diet: No Restrictions Return to The Hospital For: Chest pain, shortness of breath, heart racing, if you feel you are getting worse. CAMELIA TIERNEY MD July 28, 2021 11:47
[2021-07-28] MEDS ORDERED: ROSUVASTATIN 10 MG (CRESTOR) TABLET PO SCH (21:00)
== END 2021-07-28 12:30 | disposition home or self-care (01) ==
LOC: EDUNIT# 15:40 → ER 15:44 → ICU 17:30
PROVIDERS: ADMIT Family Medicine; ATTEND Family Medicine
DX: R07.9 Chest pain, unspecified (principal); I10 Essential (primary) hypertension; Z79.899 Other long term (current) drug therapy; E78.2 Mixed hyperlipidemia
CPT/HCPCS: 71045; 80048; 80053; 80061; 81000; 82550; 82553; 83735; 83874; 83880; 84443; 84484; 85025 ×2; 85379; 85610; 85730; 93005 ×2; 93041; 93306; 99284; G0378; 36415

== ENCOUNTER → 2021-08-09 | Outpatient (CLI) | payer OTHER ==
[~2021-08-09] MED LIST: ASPI-1238 PO; ATEN25TA PO; CATHETER FLUSH 10 ML SYR IVP PRN; DOXA2TAB2 PO; LISI20TA26 PO; PANT40TA52 PO; REGADENOSON 0.4 MG/5 ML SYR (LEXISCAN) IV ONE; ROSU10TA28 PO
[2021-08-09 09:02] VITALS: BP 145/92
--- NOTE | 2021-08-09 14:19 | NUCLEAR STRESS TEST ---
REGADENOSON NUCLEAR STRESS Date of procedure: 08/09/2021. Primary care provider: No local physician Admitting physician: Chris Melgar Jr., MD. INDICATION: Chest pain. BASELINE ELECTROCARDIOGRAM: Sinus rhythm, unremarkable tracing. STRESS TEST PROCEDURE: The patient was administered 0.4 mg of intravenous Regadenoson. The resting heart rate was 62 bpm and the peak heart rate was 91 bpm. The resting blood pressure was 145/92 mmHg and the minimum blood pressure was 117/79 mmHg. This represents a normal heart rate and a normal blood pressure response to Regadenoson. The test was stopped due to the protocol. There was no chest discomfort during the test. There were no arrhythmias during the test. There were no significant stress induced electrocardiogram changes. NUCLEAR PROCEDURE: The patient was administered 10.7 mCi of intravenous technetium 99m Tetrofosmin at rest for the rest images. The patient was subsequently administered 32.4 mCi of intravenous technetium 99m Tetrofosmin at peak stress for the stress images. Following an appropriate wait after each injection, imaging was obtained. The images were subsequently processed and reformatted in the usual views. Gated imaging was obtained. The image quality was adequate with a mild degree of gastrointestinal attenuation artifact. CT attenuation correction was used as a adjunct to standard imaging. Both the corrected and uncorrected images were reviewed for interpretation. NUCLEAR RESULTS: There was normal myocardial perfusion in all segments without evidence of infarction or ischemia. There was normal left ventricular chamber size with an end-diastolic volume of 52 mL and an end-systolic volume of 16 mL. There was no evidence of transient ischemic dilatation. The TID ratio was 1. There was normal wall motion in all segments with a calculated ejection fraction of 69%. IMPRESSION: 1. Normal heart rate and blood pressure response to regadenoson. 2. There was no chest discomfort, arrhythmias, or electrocardiogram changes during the test. 3. There was normal myocardial perfusion in all segments without evidence of infarction or ischemia. 4. There was normal wall motion in all segments with a calculated ejection fraction of 69%. Certain portions of this document may have been dictated utilizing voice recognition technology. Inherent to this technology, typographical and grammatical errors may exist. As much as I am diligent to identify and correct these mistakes, some errors may remain in the document. CHRIS MELGAR JR, MD August 09, 2021 14:19
== END ==
LOC: CARD 07:45
PROVIDERS: ATTEND Internal Medicine Cardiovascular Disease
DX: R07.9 Chest pain, unspecified (principal)
CPT/HCPCS: 78452; 93017; A9502

== ENCOUNTER → 2021-09-28 | Outpatient (CLI) | payer OTHER ==
[~2021-09-28] MED LIST changes: +CATHETER FLUSH 10 ML SYR IV PRN; -CATHETER FLUSH 10 ML SYR IVP PRN; +HOLD METFORMIN - RECEIVED CONTRAST 20 ML VIAL IV SCH; +IOHEXOL 350 MG/ML 100 ML (OMNIPAQUE 350) VIAL IV ONE; +NS 100 ML (IVPB) BAG IV ONE; -REGADENOSON 0.4 MG/5 ML SYR (LEXISCAN) IV ONE
[2021-09-28 16:06] LABS: CREATININE SERUM 0.79 MG/DL (0.60-1.30)
--- NOTE | 2021-09-28 17:12 | Diagnostic Imaging Report ---
EXAMINATION: CT abdomen with and without intravenous contrast. TECHNIQUE: Precontrast acquisitions were acquired through the abdomen . Multiple contiguous axial images were obtained through the abdomen after the administration of intravenous contrast. All CT scans use one or more of the following dose optimizing techniques: automated exposure control, MA and/or KvP adjustment based on patient size and exam type or iterative reconstruction. HISTORY: Adrenal lesion evaluation. COMPARISON: None available. FINDINGS: Lung bases: Bibasilar dependent atelectasis. Solid organs: The liver is normal without focal lesion. The gallbladder is normal. There is no biliary ductal dilation. Pancreas is normal. Spleen is normal. Adrenal glands are normal. The kidneys are normal without hydronephrosis. Bowel: No bowel obstruction. Peritoneum: There is no intraperitoneal free fluid or free air. No suspicious lymphadenopathy. Vasculature: Normal without aneurysm. Musculoskeletal: Degenerative changes of the spine without suspicious osseous lesion or compression fracture. IMPRESSION: 1. Unremarkable CT of the abdomen. 2. No adrenal lesion. Dictated by: Dictated on workstation # [id number]
== END ==
LOC: RAD 15:24
PROVIDERS: ATTEND Nurse Practitioner Family
DX: D35.00 Benign neoplasm of unspecified adrenal gland (principal); I10 Essential (primary) hypertension
CPT/HCPCS: 36415; 74170; 82565; 84520

== ENCOUNTER → 2021-10-16 | Outpatient (CLI) | payer OTHER ==
[~2021-10-16] MED LIST changes: -CATHETER FLUSH 10 ML SYR IV PRN; -HOLD METFORMIN - RECEIVED CONTRAST 20 ML VIAL IV SCH; -IOHEXOL 350 MG/ML 100 ML (OMNIPAQUE 350) VIAL IV ONE; -NS 100 ML (IVPB) BAG IV ONE
[2021-10-16 06:59] LABS: HEMATOCRIT 41 % (35-52); MEAN CORPUSCULAR HEMOGLOBIN 31 pg (25-34); MEAN CORPUSCULAR HGB CONC 34 g/dL (32-36); MEAN CORPUSCULAR VOLUME 91 fL (80-99); MEAN PLATELET VOLUME 9.6 fL (9.0-12.2); PLATELET COUNT 263 10^3/uL (130-400); WHITE BLOOD COUNT 5.1 10^3/uL (4.3-11.0)
[2021-10-16 07:22] LABS: ALBUMIN 3.9 GM/DL (3.2-4.5); BILIRUBIN,TOTAL 0.5 MG/DL (0.1-1.0); CREATININE SERUM 0.78 MG/DL (0.60-1.30); POTASSIUM 3.8 MMOL/L (3.6-5.0); TOTAL PROTEIN 6.4 GM/DL (6.4-8.2)
--- NOTE | 2021-10-16 09:50 | Diagnostic Imaging Report ---
INDICATION: Hypertension. FINDINGS: The right kidney measures 9 x 4.2 x 4.4 cm. The left kidney measures 10.7 x 5.3 x 5.4 cm. There is no evidence of hydronephrosis. No calculi or masses. Doppler sampling shows resistive indices of 0.6 bilaterally. Peak velocity renal artery on the right is 28 cm/s for a renal artery to aortic ratio of 0.5. Peak velocity left renal artery is 91 with a renal artery to aortic ratio of 1.7. IMPRESSION: Normal bilateral renal ultrasound with no Doppler findings that would suggest hemodynamic stenosis. Dictated by: Dictated on workstation # [id number]
== END ==
LOC: RAD 06:45
PROVIDERS: ATTEND Nurse Practitioner Family
DX: Z00.00 Encounter for general adult medical examination without abnormal findings (principal); I10 Essential (primary) hypertension
CPT/HCPCS: 36415; 76770; 80053; 84443; 85027; 93975

== ENCOUNTER 2022-04-11 08:00 | Outpatient (RCR) | payer OTHER ==
[2022-04-16 16:12] LABS: URINE VOLUME CAT 2400 mL mL
== END 2022-04-23 | disposition home or self-care (01) ==
LOC: LAB 08:00
PROVIDERS: ATTEND Internal Medicine Cardiovascular Disease
DX: I10 Essential (primary) hypertension (principal)
CPT/HCPCS: 36415; 82088; 82384; 84244

== ENCOUNTER → 2022-09-19 | Outpatient (CLI) | payer OTHER ==
[2022-09-19 13:06] LABS: BILIRUBIN,URINE NEGATIVE (NEGATIVE); CLARITY,URINE SL CLOUDY; COLOR,URINE YELLOW; GLUCOSE, URINE (UA) NEGATIVE (NEGATIVE); KETONES,URINE NEGATIVE (NEGATIVE); LEUKOCYTE ESTERASE ,URINE 1+ (NEGATIVE); NITRITE,URINE POSITIVE (NEGATIVE); PROTEIN,URINE NEGATIVE (NEGATIVE)
[2022-09-19 13:10] LABS: BASOPHILS % (AUTO) 1 % (0-10); EOSINOPHILS # (AUTO) 0.1 10^3/uL (0.0-0.3); EOSINOPHILS % (AUTO) 1 % (0-10); HEMATOCRIT 42 % (35-52); HEMOGLOBIN 14.5 g/dL (11.5-16.0); LYMPHOCYTES # (AUTO) 2.8 10^3/uL (1.0-4.0); LYMPHOCYTES % (AUTO) 39 % (12-44); MEAN CORPUSCULAR HEMOGLOBIN 31 pg (25-34); MEAN CORPUSCULAR HGB CONC 35 g/dL (32-36); MEAN CORPUSCULAR VOLUME 89 fL (80-99); MEAN PLATELET VOLUME 9.1 fL (9.0-12.2); MONOCYTES # (AUTO) 0.5 10^3/uL (0.0-1.0); MONOCYTES % (AUTO) 8 % (0-12); NEUTROPHILS # (AUTO) 3.7 10^3/uL (1.8-7.8); NEUTROPHILS % (AUTO) 52 % (42-75); PLATELET COUNT 243 10^3/uL (130-400); WHITE BLOOD COUNT 7.1 10^3/uL (4.3-11.0)
[2022-09-19 13:16] LABS: BACTERIA,URINE LARGE /HPF
[2022-09-19 13:23] LABS: ALBUMIN 4.3 GM/DL (3.2-4.5)
[2022-09-19 13:24] LABS: POTASSIUM 3.6 MMOL/L (3.6-5.0)
[2022-09-19 13:28] LABS: BILIRUBIN,TOTAL 0.6 MG/DL (0.1-1.0)
[2022-09-19 13:29] LABS: CREATININE SERUM 0.85 MG/DL (0.60-1.30)
== END ==
LOC: LAB 12:35
PROVIDERS: ATTEND Nurse Practitioner Family
DX: Z00.00 Encounter for general adult medical examination without abnormal findings (principal); I10 Essential (primary) hypertension; R11.0 Nausea; R30.0 Dysuria
CPT/HCPCS: 36415; 80053; 81000; 85025; 87077; 87088; 87186

== ENCOUNTER → 2022-09-27 | Outpatient (CLI) | payer OTHER ==
[2022-09-27 10:15] LABS: ALBUMIN 4.1 GM/DL (3.2-4.5); POTASSIUM 3.8 MMOL/L (3.6-5.0)
[2022-09-27 10:16] LABS: CALCIUM 9.6 MG/DL (8.5-10.1)
[2022-09-27 10:19] LABS: BILIRUBIN,TOTAL 0.6 MG/DL (0.1-1.0)
[2022-09-27 10:21] LABS: CREATININE SERUM 0.77 MG/DL (0.60-1.30)
== END ==
LOC: LAB 09:15
PROVIDERS: ATTEND Nurse Practitioner Family
DX: Z00.00 Encounter for general adult medical examination without abnormal findings (principal); I10 Essential (primary) hypertension; S30.861A Insect bite (nonvenomous) of abdominal wall, initial encounter; R20.8 Other disturbances of skin sensation
CPT/HCPCS: 36415; 80053; 82607; 84443; 85652; 86141; 86666; 86668; 86757